=== PATIENT | male | born 1995 | race Caucasian/White ===

== ENCOUNTER 2021-01-09 22:27 | Observation (INO) | payer OTHER, SELFPAY ==
--- NOTE | ~2021-01-09 | CT_ITS ---
EXAMINATION: CT abdomen pelvis w con EXAM DATE: 01/10/2021 02:35 INDICATION: Right lower quadrant pain. TECHNIQUE: Spiral CT of the abdomen and pelvis was performed following intravenous injection of 100 m L Omnipaque 350. Axial, coronal and sagittal images were reviewed. The dose-length product (DLP) fo r this examination was 659.63 mGy-cm. The exposure was tailored according to patient size (auto mA e xposure control), and iterative reconstruction (ASIR) was used as additional dose reduction technique . There is no prior study for comparison. FINDINGS: The liver, spleen, adrenal glands and pancreas are unremarkable. Gallbladder is unremarkab le. No biliary obstruction. Portal and splenic veins are patent. Kidneys enhance symmetrically. T here is no hydronephrosis. The prostate is unremarkable. The bladder is unremarkable. There is no retroperitoneal or pelvic lymphadenopathy. 0 The appendix is dilated, fluid-filled and has mild adjacent inflammation, acute appendicitis without evidence of perforation. The stomach and small bowel are unremarkable. There is expected amount of colonic stool. No free intraperitoneal gas. The heart is normal in size. There are no pericardia l or pleural effusions. The lung bases are unremarkable. There are no osteoblastic or osteolytic le sions identified. IMPRESSION: Acute appendicitis. Reviewed, dictated and finalized at location A. IMPRESSION: Acute appendicitis.
[2021-01-09 22:42] VITALS: BP 118/68; PULSE 76; RESP 16; TEMP 36.6; O2SAT 97
[2021-01-09 22:55] LABS: Basophils Percent Auto 0.3 % (0.2-1.2); Eosinophils Absolute Auto 0.2 K/mm3 (0-0.3); Eosinophils Percent Auto 1.8 % (0-4.4); Hematocrit 42.7 % (42.0-52.0); Hemoglobin 14.7 g/dL (14.0-18.0); Immature Granulocyte Absolute 0.02 K/mm3 (0.00-0.031); Immature Granulocyte Percent A 0.2 % (0-0.5); Lymphocytes Absolute Auto 2.47 K/mm3 (0.9-3.2); Lymphocytes Percent Auto 22.7 % (18.3-44.2); Mean Corpuscular HGB Conc 34.4 g/dl (32-36); Mean Corpuscular Hemoglobin 30.1 pg (26-34); Mean Corpuscular Volume 87.3 fl (80-100); Monocytes Absolute Auto 0.8 K/mm3 (0.1-0.6); Monocytes Percent Auto 7.7 % (2.6-8.5); Neutrophils Absolute Auto 7.3 K/mm3 (1.3-6.7); Neutrophils Percent Auto 67.3 % (45.5-73.1); Platelet Count Result 258 k/mm3 (150-375); Red Blood Count 4.89 M/mm3 (4.6-6.20); Red Cell Distribution Width 11.9 % (11.5-14.5); White Blood Count 10.9 K/mm3 (4.5-10.0)
[2021-01-09 22:58] LABS: Add Urine Microscopic? NO; Appearance Urine Clear (Clear); Bilirubin Urine Negative (Negative); Blood Urine Negative (Negative); Color Urine Straw (Yellow); Glucose Urine UA Negative (Negative); Ketones Urine Negative (Negative); Leukocyte Esterase Ur Negative LEU/UL (Negative); Nitrate Urine Negative (Negative); Protein Urine Negative (Negative); Specific Grav Ur 1.011 (1.001-1.035); Urobilinogen Urine Negative mg/dL (<2.0)
[2021-01-09 23:08] LABS: Alanine Aminotransferase 41 U/L (4-50); Albumin Level 4.6 g/dL (3.5-5.1); Alkaline Phosphatase 58 U/L (38-126); Anion Gap 6 mmol/L (8-16); Aspartate Amino Transferase 59 U/L (17-59); Bilirubin,Total 0.6 mg/dL (0.2-1.3); Blood Urea Nitrogen 11 mg/dL (9-20); Carbon Dioxide 28 mmol/L (22-30); Chloride 105 mmol/L (98-107); Estimated CRCL calculation 134 ml/min; Estimated Glomerular Filt Rate > 60; Glucose 113 mg/dL (75-110); Lipase 66 U/L (23-300); Potassium 3.9 mmol/L (3.4-5.0); Sodium 139 mmol/L (137-145)
[2021-01-10] VITALS (15 sets, daily range): BP systolic 118–138; BP diastolic 67–83; PULSE 52–70; RESP 14–18; TEMP 36.2–37; O2SAT 92–100; BMI 27.2
--- NOTE | 2021-01-10 01:59 | ED.ABDPAIN ---
HPI - Abdominal Pain General Chief Complaint: Abdominal Pain Stated Complaint: right lower abd pain-nausea Time Seen by Provider: 01/10/21 01:57 Source: patient Mode of arrival: ambulatory Limitations: no limitations History of Present Illness HPI narrative: Patient 25 years old white male presents with right lower quadrant pain started 8 hours ago associated with nausea. Patient also complaining of sore throat for the last 2 days. Patient denies exposure to anybody have similar symptoms. Patient denies any fever, vomiting, diarrhea, constipation, urinary symptoms. Patient lives with his girlfriend who is doing okay Related Data Allergies Allergy/AdvReac Type Severity Reaction Status Date / Time No Known Allergies Allergy Verified 07/28/18 17:18 Review of Systems Review of Systems: Narrative: CONSTITUTIONAL: Denies fever, chills, or sweats. EYES: Denies visual changes, redness, or discharge. ENT: Denies rhinorrhea, congestion, sore throat, or otalgia. CARDIOVASCULAR: Denies chest pain, palpitations, or edema. RESPIRATORY: Denies cough or dyspnea. GASTROINTESTINAL: Denies abdominal pain, nausea, vomiting, or diarrhea. GENITOURINARY: Denies dysuria or hematuria. SKIN: Denies rash or itching. MUSCULOSKELETAL: Denies back pain, joint pain, or myalgia. NEUROLOGIC: Denies headache, numbness, or weakness. PSYCHIATRIC: Denies anxiety or depression. Exam Narrative: Exam Narrative: General appearance: Well-developed, well-nourished Skin: Normal color Head: Normocephalic, nontraumatic Eyes: Clear conjunctiva ENT: Slight erythematous changes l, ears normal, nose normal Neck: Supple, nontender Chest and respiratory: Airway patent, no respiratory distress, no accessory muscle use Heart: Regular rate/rhythm Abdomen: Soft, right lower quadrant tenderness, no organomegaly, quiet bowel sounds Vascular: Normal peripheral pulses, normal capillary refill. 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 Appendicitis, kidney stone, urinary tract infection, constipation are my concern. Labs, CT abdomen pelvis with IV contrast, IV fluid. Patient also complaining of sore throat for the last 2 days, denies exposure to anybody with COVID-19. His girlfriend is asymptomatic. Rapid strep and mono ordered. Further plan to follow Differential Diagnosis Differential diagnosis: Likely abdominal pain, acute appendicitis, calculus of kidney, constipation and diverticulitis Lab Data Result diagrams: 01/09/21 22:47 01/09/21 22:47 Labs: Lab Results 01/09/21 01/09/21 01/09/21 Range/Units 22:44 22:47 22:47 WBC 10.9 H (4.5-10.0) K/mm3 RBC 4.89 (4.6-6.20) M/mm3 Hgb 14.7 (14.0-18.0) g/dL Hct 42.7 (42.0-52.0) % MCV 87.3 (80-100) fl MCH 30.1 (26-34) pg MCHC 34.4 (32-36) g/dl RDW 11.9 (11.5-14.5) % Plt Count 258 (150-375) k/mm3 MPV 9.0 (7.4-10.4) fl Immature Gran % (Auto) 0.2 (0-0.5) % Neut % (Auto) 67.3 (45.5-73.1) % Lymph % (Aut
[2021-01-10] MEDS: SODIUM CHLORIDE 0.9% IV 1,000 ML 999 ML IV CONT (02:22)
[2021-01-10] MEDS: HYDROmorphone HCL INJ (*CRX) 1 MG/ML SYR 0.5 MG IV PUSH (03:23)
[2021-01-10] MEDS: ONDANSETRON INJ 4 MG/2 ML VIAL IV PUSH (03:23)
[2021-01-10 03:36] LABS: Monoscreen Negative (Negative); Negative Monotest Control Negative (Negative); Positive Monotest Control Positive (Positive)
--- NOTE | 2021-01-10 04:19 | ADMGEN ---
This patient, Malick Burns II, was admitted to [facility] Surg Room 332-01. Patient/family oriented to hospital policies and general routines including ID bracelet, bed and alarms, visiting hours, pain management, procedures, bathroom and other care routines, personal items, smoking policy, room service/diet, and visiting hours. Information on how to activate the Rapid Response Team has been discussed. Patient/Family are encouraged to report perceived risks to care and to ask questions if they do not understand what they are told or what they should do.
[2021-01-10] MEDS: LACTATED RINGERS 1,000 ML 150 ML IV CONT (06:02)
--- NOTE | 2021-01-10 09:04 | PM.IMHP ---
H&P: HPI History of Present Illness Date/Time: 01/10/21 09:04 Chief Complaint: Right lower quadrant pain Narrative: This is a 25-year-old male who presented to the ER with complaints of right lower quadrant abdominal pain. He reports having an onset of generalized, mild abdominal pain starting yesterday afternoon. Through the evening, his pain became localized to the right lower quadrant. He was unable to get comfortable and the pain became more severe, therefore he came to the ER for further evaluation. CT scan of the abdomen and pelvis showed acute uncomplicated appendicitis. Labs revealed a white blood cell count of 10,900, otherwise labs were unremarkable. Urinalysis negative. He had complained of a sore throat and congestion for the past 3 days, and has been tested for COVID-19, which is pending. Denies cough, loss of taste/smell, dyspnea, or known exposure to anyone with COVID-19. Our service was contacted by the ER physician and he has been admitted for surgical evaluation of acute appendicitis. The patient is seen on the medical floor. Reports his abdominal pain has improved with analgesics and sitting still. Also reports sore throat and congestion for 3 days. No known contacts to COVID-19. No other complaints at this time. Review of Systems Constitutional: Constitutional: Reports as per HPI, Reports chills and Denies fever(s) Eyes: Eyes: Reports no additional eye complaints and Denies change in vision ENT: Reports as per HPI, Reports Normal hearing present, Reports sore throat (x 3) and Reports other (congestion) Cardiovascular: Cardiovascular: Reports no additional cardiovascular complaints, Denies chest pain, Denies leg edema and Denies radiating jaw, neck or arm pain Respiratory: Respiratory: Reports no additional respiratory complaints, Denies cough, Denies dyspnea and Denies wheezing Gastrointestinal: Gastrointestinal: Reports as per HPI, Reports no additional gastrointestinal complaints, Reports abdominal pain (RLQ), Denies melena, Denies hematochezia, Denies constipation, Reports diarrhea (today), Denies nausea and Denies vomiting Genitourinary: Genitourinary: Reports no additional male genitourinary complaints, Denies hematuria and Denies dysuria Musculoskeletal: Musculoskeletal: Reports no additional musculoskeletal complaints, Denies deformity and Denies joint swelling Integumentary/Breasts: Skin/Breast: Denies wounds and Denies jaundice Neurologic: Reports system reviewed and no additional complaints, except as documented, Denies dizziness, Denies syncope, Denies headache(s) and Denies tingling Psychiatric: Psychiatric: Reports anxiety and Denies depression PMF Past Medical History Medical History Anxiety Surgical History Surgical History Hx of abdominal surgery Reports having an umbilical scar from a surgery as an infant. He cannot recall what type of surgery. Social History Social History Smoking status: Former smoker Tobacco type: e-cigarettes/vaping Alcohol intake: current Drinks per week: 12 Substance use: never Substance use type: does not use Living arrangements: with family Additional living arrangements comments: Occupation/Education: occupation Additional occupation/education comments: Desk job Gender identity (if verbalized by the patient): Male Sexual Orientation (if Verbalized by the Patient): Straight or Heterosexual Spiritual care concerns: No Meds Home Medications and Allergies Home Medications Medication Instructions Recorded Confirmed Type sertraline 25 mg PO DAILY 01/10/21 01/10/21 History Allergies Allergy/AdvReac Type Severity Reaction Status Date / Time No Known Allergies Allergy Verified 07/28/18 17:18 Vital Signs Vital Signs - 24 hr 01/09/21 22:42 03
--- NOTE | 2021-01-10 13:14 | WPDANESEPPF ---
Anes - Initial Pre Proc Eval Procedure: Operation Date: 01/10/21 16:30 Proposed Procedures p Laparoscopic Appendectomy - Liam Nava DO Date/Time: 01/10/21 13:14 Surgeon: Liam Nava DO Pre Op Diagnosis: Acute appendicitis Patient Data Age: 25 Gender: M Height: 1.83 m Weight: 91.2 kg Last Vital Signs Temp 37.0 C 01/10/21 11:54 Pulse 52 L 01/10/21 11:54 Resp 18 01/10/21 11:54 BP 118/67 01/10/21 11:54 Pulse Ox 99 01/10/21 11:54 Allergies Allergy/AdvReac Type Severity Reaction Status Date / Time No Known Allergies Allergy Verified 07/28/18 17:18 Home Medications Medication Instructions Recorded Confirmed Type sertraline 25 mg PO DAILY 01/10/21 01/10/21 History Laboratory Tests 01/09/21 01/09/21 01/09/21 22:44 22:44 22:47 WBC 10.9 K/mm3 H K/mm3 (4.5-10.0) RBC 4.89 M/mm3 M/mm3 (4.6-6.20) Hgb 14.7 g/dL g/dL (14.0-18.0) Hct 42.7 % % (42.0-52.0) MCV 87.3 fl fl (80-100) MCH 30.1 pg pg (26-34) MCHC 34.4 g/dl g/dl (32-36) RDW 11.9 % % (11.5-14.5) Plt Count 258 k/mm3 k/mm3 (150-375) MPV 9.0 fl fl (7.4-10.4) Immature Gran % (Auto) 0.2 % % (0-0.5) Neut % (Auto) 67.3 % % (45.5-73.1) Lymph % (Auto) 22.7 % % (18.3-44.2) Bullock % (Auto) 7.7 % % (2.6-8.5) Eos % (Auto) 1.8 % % (0-4.4) Baso % (Auto) 0.3 % % (0.2-1.2) Lymph # (Auto) 2.47 K/mm3 K/mm3 (0.9-3.2) Bull[place] # (Auto) 0.8 K/mm3 H K/mm3 (0.1-0.6) Eos # (Auto) 0.2 K/mm3 K/mm3 (0-0.3) Baso # (Auto) 0.0 K/mm3 K/mm3 (0.0-0.1) Abs Immat Gran (auto) 0.02 K/mm3 K/mm3 (0.00-0.031) Absolute Neuts (auto) 7.3 K/mm3 H K/mm3 (1.3-6.7) Absolute Nucleated RBC 0.0 K/mm3 K/mm3 (0.0-0.012) Nucleated RBC % 0.0 % % (0.0-0.2) Sodium Potassium Chloride Carbon Dioxide Anion Gap BUN Creatinine Estim Creat Clear Calc Estimated GFR Glucose Calcium Total Bilirubin AST ALT Alkaline Phosphatase Total Protein Albumin Lipase Urine Color Straw (Yellow) Urine Appearance Clear (Clear) Urine pH 7.0 (5.0-9.0) Ur Specific [place] 1.011 (1.001-1.035) Urine Protein Negative mg/dL mg/dL (Negative) Urine Glucose (UA) Negative mg/dL mg/dL (Negative) Urine Ketones Negative mg/dL mg/dL (Negative) Ur Blood (Man) Negative (Negative) Urine Nitrate Negative (Negative) Urine Bilirubin Negative (Negative) Urine Urobilinogen Negative mg/dL mg/dL (<2.0) Leukocyte Esterase Rfl Negative JEMIMA/UL JEMIMA/UL (Negative) Monoscreen Negative (Negative) SARS-CoV-2 RNA (RT-PCR) 01/09/21 01/10/21 22:47 03:46 WBC RBC Hgb Hct MCV MCH MCHC RDW Plt Count MPV Immature Gran % (Auto) Neut % (Auto) Lymph % (Auto) Bull[place] % (Auto) Eos % (Auto) Baso % (Auto) Lymph # (Auto) [place] # (Auto) Eos # (Auto) Baso # (Auto) Abs Immat Gran (auto) Absolute Neuts (auto) Absolute Nucleated RBC Nucleated RBC % Sodium 139 mmol/L mmol/L (137-145) Potassium 3.9 mmol/L mmol/L (3.4-5.0) Chloride 105 mmol/L mmol/L (98-107) Carbon Dioxide 28 mmol/L mmol/L (22-30) Anion Gap 6 mmol/L L mmol/L (8-16) BUN 11 mg/dL mg/dL (9-20) Creatinine 0.80 mg/dL mg/dL (0.7-1.3) Es
--- NOTE | 2021-01-10 16:05 | WPDHPUPDATE1 ---
History and Physical Update Update Date/Time: 01/10/21 16:05 History and Physical has been reviewed, including an updated exam of the patient. There are NO changes in the patient's condition. Risks, benefits, and alternatives have been discussed and questions answered. Patient agrees to proceed with procedure.
[2021-01-10] MEDS: BUPIVACAINE/EPINEPHRINE 0.5% 30 ML VIAL INFILTRATE (17:05)
[2021-01-10] MEDS: LACTATED RINGERS 1,000 ML 30 ML IV CONT (17:27)
--- NOTE | 2021-01-10 17:41 | PM.PROC ---
Procedure Note - Detailed Date of procedure: 01/10/21 Pre-op diagnosis: Acute appendicitis Post-op diagnosis: same Procedure performed: Laparoscopic Appendectomy Description of procedure: Procedure as well as risks, benefits, and alternatives were explained to the patient. The patient agreed to proceed. Written consent was obtained and placed in chart prior to procedure. The patient was brought back to surgical suite. He was placed supine on operating table. Time-out was done to confirm the patient and procedure. The patient was then intubated by the Anesthesia Department. His abdomen was prepped and draped in sterile fashion using chlorhexidine prep. A 12 mm incision was made at the inferior portion of the umbilicus. Blunt dissection was carried out down to the linea alba. The linea alba was then incised using a 15 blade scalpel. Then bluntly entered into the peritoneal cavity. A 12 mm trocar was then inserted, and carbon dioxide insufflation was used to create a pneumoperitoneum. The camera was inserted and the abdomen was inspected. No immediate abnormalities were identified. The patient was then placed in slight Trendelenburg position and rotated to the left. A 5 mm incision was made in the suprapubic region in midline and a 5 mm trocar was inserted under direct visualization. A 5 mm incision was made in the left lower quadrant and a 5 mm trocar was inserted under direct visualization. The right lower quadrant was carefully inspected. The cecum was identified and then this was traced back to the appendix. The appendix was identified and grasped at the mesoappendix and lifted anteriorly. Careful blunt dissection was carried out at the base of the appendix through the mesoappendix using a [place] grasper. An Endo-JOSSELIN 45 mm blue load stapler was then advanced across the base of the appendix and clamped and fired. A white reload was then clamped across the mesoappendix and fired. This freed up our appendix completely. It was then placed in an EndoCatch bag and removed through the left lower quadrant port. The staple lines were then inspected. Hemostasis appeared adequate and the staple lines appeared secure. The area was then irrigated with sterile saline. The pelvis was then carefully inspected and irrigated with sterile saline as well and the remainder of the abdomen was carefully inspected. The patient was then flattened out in bed. One final inspection was made around the abdominal cavity and no other abnormalities were seen. The ports were then removed under direct visualization. The camera was removed and the pneumoperitoneum was released. The fascia of the umbilical incision was reapproximated using an 0 Vicryl [id number] suture. 0.5% bupivacaine with epinephrine was infiltrated locally around each of the incisions. The skin of the incisions was then approximated using 4-0 Monocryl subcuticular suture and Exofin glue was applied on top. The patient was then awakened from anesthesia, extubated, and transferred to Recovery. Anesthesia: GETA and local (0.5% bupivicaine with epi) Surgeon: Liam Nava DO Estimated blood loss (mL): 10 Pathology: yes (Appendix) Complications: No immediate complications Condition: stable Disposition: floor Findings: This is a 25-year-old man who presented to the emergency department overnight with right lower quadrant pain. He began having some vague abdominal pain last night and then eventually this was localized to the right lower quadrant. He denied any fevers or chills. He had never had any symptoms like this before. CT in the emergency department showed evidence of acute appendicitis. He was admitted to hospital and started broad-spectrum IV antibiotics. Discussions were with the patient treatment options and decision was made to proceed with laparoscopic appendectomy, possible open. Laparoscopic appendectomy was performed. The appendix was identified appeared to be acutely inflamed
[2021-01-10] MEDS: fentaNYL CITRATE INJ (*CRX) 100 MCG/2 ML VIAL 25 MCG IV PUSH ×4 (17:44→18:00)
--- NOTE | 2021-01-10 18:09 | SUR.PHASEI ---
PT AWAKE AND ALERT. STATES SORENESS TO ABDOMEN MILD AND TOLERABLE.
--- NOTE | 2021-01-10 18:20 | PC.NURSE ---
Patient returned from post-op per bed.
[2021-01-10 18:30] LABS: SARS-CoV-2 RNA PCR Negative
[2021-01-10] MEDS: IBUPROFEN 600 MG TABLET PO (18:49)
--- NOTE | 2021-01-10 21:00 | PM.DS ---
DS: Admitting Diagnosis Admitting Diagnosis Admitting Diagnosis: Acute appendicitis DS: Discharge Diagnosis Discharge Diagnosis (1) Acute appendicitis: Qualifiers: Acute appendicitis type: unspecified acute appendicitis type Qualified Code(s): K35.80 - Unspecified acute appendicitis Code(s): K35.80 - Unspecified acute appendicitis Status: Acute DS: Summary Hospital Course Reason for hospitalization: Appendicitis Hospital Course: This is a 25-year-old man who presented to the emergency department 01/10/21 with right lower quadrant pain. Workup in the emergency department confirmed evidence acute appendicitis. He was started on broad-spectrum IV antibiotics and was admitted to the hospital. Discussions were made with the patient about treatment options and decision was made to proceed with laparoscopic appendectomy on 01/10/21. Surgery was uncomplicated and he was returned to the surgical floor postoperatively. His diet and activity were advanced as tolerated. The evening of the surgery, he was up ambulating with adequate pain control and remained hemodynamically stable. He was tolerating a regular diet. He was discharged on 01/10/2021. Status at Discharge Functional status at discharge: independent ambulation Overall status at discharge: patient is progressing back to baseline Time Spent with Patient Time attestation: Total time spent providing and/or coordinating discharge services: Time spent: Less than 30 minutes Exam GI: Inspection: incision ( Intact with glue) GI Palp: Yes Tenderness to palpation present (GI) ( appropriate postop) DS: Data Data Completed and Pending Completed studies during hospitalization: Pending at discharge 01/10/21 16:53 Surgical [PTH] Routine Imaging Radiologist's impression: ITS Impressions Abdomen/Pelvis CT 01/10/21 08:52 IMPRESSION: Acute appendicitis. Discharge Plan Discharge Attending physician on discharge: Liam Ballard Consulting providers: Benedicto Frazier ; Felecia Philip Discharging Clinician: Liam Ballard Anticipated Discharge Date/Time: 01/10/21 21:00 Patient Disposition: Home, Self-Care Activity: other - see discharge instructions Diet: regular Wound Care Instructions: follow printed instructions Discharge Instructions: DISCHARGE INSTRUCTION SHEET FOR HERNIA, GALLBLADDER AND APPENDIX SURGERIES DR. BALLARD PATIENT TO TAKE HOME 1. May shower in 24 hours, no soaking in bath x 2weeks. 2. Call office for: Wound increasingly painful or bleeding Vomiting Fever of greater than 101 degrees 3. If no bowel movement for three days, take 1 oz. (30 ml) Milk of Magnesia or MiraLax 17g 1 to 2 times daily. 4. No heavy lifting > 10-15 pounds x weeks for hernia repairs and 2 weeks for laparoscopic cholecystectomy or appendectomy. 5. No driving for 3 days or while taking narcotic pain medications. 6. Ice to surgical site for 48 hours (30 min on, then 30 min off). 7. Up walking 10-30 minutes three times per day. 8. Resume previous home medications. 9. Follow-up 10-14 days in office for wound check or as previously scheduled. ([id number]) 10. Oral pain medications prescription to be sent to pharmacy. Take Tylenol 500mg every 6 hours and Ibuprofen 600mg every 6 hours for the first 2 days, then as needed. 11. NUTRITION: Start out by drinking fluids and increase your diet as tolerated. If you experience nausea, try dry toast, crackers, and 7-UP. If nausea or vomiting persists, contact your surgeon?s office. 12. Gallbladders-Low Fat Diet for 2 weeks (send care note of low fat diet) 13. Inguinal Hernias-wear scrotal support for 48 hours 14. Abdominal Hernias-if sent home with abdominal binder, wear for the first 2 weeks (may remove to shower or at night to sleep).
== END 2021-01-10 21:35 | disposition home or self-care (01) ==
LOC: ANHED 01-10 03:21 → ANH3MEDSUR 01-10 04:09
PROVIDERS: Family Medicine; Admitting Provider Surgery; Emergency Provider Emergency Medicine; PCP Emergency Medicine; Visit Provider Surgery
PROC: 0DTJ4ZZ Resection of Appendix, Percutaneous Endoscopic Approach (ICD-10-PCS; CPT 44970; principal; 2021-01-10 16:30)
DX: R10.31 Right lower quadrant pain (principal); K35.30 Acute appendicitis with localized peritonitis, without perforation or gangrene; F41.9 Anxiety disorder, unspecified; Z20.822 Contact with and (suspected) exposure to COVID-19; Z87.891 Personal history of nicotine dependence
CPT/HCPCS: 44970; 36415; 74177; 80053; 81003; 83690; 85025; 86308; 87081; 87880; 88304; 96361; 96365; 96375; 96376; 99285; A9270; C9803; G0378; J0330; J1100; J1170; J2405; J2543; J2704; J3010; J7030; J7120; Q9967; U0003; U0005

== ENCOUNTER → 2021-02-02 06:47 | Outpatient (CLI) | payer OTHER, SELFPAY ==
[2021-02-03 21:01] LABS: SARS-CoV-2 RNA PCR Negative
== END ==
PROVIDERS: PCP Physician Assistant; Visit Provider Physician Assistant
DX: Z20.822 Contact with and (suspected) exposure to COVID-19 (principal); R09.89 Other specified symptoms and signs involving the circulatory and respiratory systems
CPT/HCPCS: C9803; U0003; U0005